=== PATIENT | male | born 1985 | race Caucasian/White ===

== ENCOUNTER 2022-11-19 23:11 | Emergency (ER) | payer OTHER, SELFPAY ==
--- NOTE | ~2022-11-19 | US_ITS ---
US scrotum doppler DATE: 11/20/2022 00:21 INDICATION: Left scrotal pain TECHNIQUE: Real-time and color flow imaging and Doppler analysis of the scrotal contents COMPARISON: None FINDINGS: There is normal symmetric echotexture of the testicles, without evidence of testicular mass lesion. There is normal vascular flow to the testicles, without evidence of torsion. Left and right epididymis appear normal. Left varicocele. Left varix diameter measures up to 3.5 mm. IMPRESSION: Left varicocele Reviewed, dictated and finalized at [facility] Reviewed, dictated and finalized at [facility]. [employer] IMPRESSION: Left varicocele
[2022-11-19 23:14] VITALS: BP 147/85; PULSE 83; RESP 14; TEMP 36.2; O2SAT 97
--- NOTE | 2022-11-19 23:29 | ED.MALEGU ---
HPI - Male Genitourinary General Chief complaint: Urogenital-Male Stated complaint: left testicle pain Time Seen by Provider: 11/19/22 23:22 History of Present Illness HPI Narrative: Patient is a 37-year-old male here for evaluation of left testicular pain for the past day. Patient states the pain is crampy and severe in nature located around his left testicle and also in his left groin. Reports nausea but no vomiting associated with this. Patient has history of varicocele, epididymitis and hydrocele but states that pain today feels different. No penile drainage, dysuria, urgency or frequency. Related Data Home Medications Medication Instructions Recorded Confirmed No Home Medications 11/19/22 11/19/22 Allergies Allergy/AdvReac Type Severity Reaction Status Date / Time No Known Allergies Allergy Verified 11/19/22 23:11 Review of Systems Review of Systems: Gen.: Denies fevers or chills Eyes: Denies eye pain or visual change ENT: Denies congestion Respiratory: Denies shortness of breath or cough CV: Denies chest pain or palpitations GI: Reports nausea denies abdominal pain, emesis or diarrhea reports left testicular pain denies burning, urgency, frequency or hematuria Musculoskeletal: Denies back pain or muscle pain Neuro: Denies numbness, tingling, weakness or focal weakness Skin: Denies rash Except as documented, all other systems reviewed and negative Exam Narrative: APPEARANCE: Well appearing, no pain in distress, well-nourished. Head: Normocephalic and atraumatic. EYES: PERRLA/EOMI, conjunctivae clear NOSE: No nasal drainage EARS: External ear normal in appearance THROAT: Oropharynx is clear. Mucous membranes are moist. NECK: Supple. No adenopathy, no masses. RESPIRATORY: Airway patent, respirations nonlabored. Clear to auscultation bilaterally, no rales, rhonchi, wheezing. CARDIOVASCULAR: Regular rate and rhythm without murmurs, rubs, or gallops. ABDOMINAL: Normoactive bowel sounds. Soft, nontender, nondistended. No rebound tenderness or guarding. : bag of worms palpated in left testicle. No tenderness to palpation of either testicle. No penile lesions or rashes. No penile discharge MUSCULOSKELETAL: Extremities are warm and well-perfused. Moves all extremities well. No edema. NEURO: Normal speech. No focal neurologic deficits. SKIN: Skin is warm and dry. No rashes. PSYCHIATRIC: Normal affect/mood.. Course Vital Signs Vital signs: Vital Signs Temperature 97.2 F L 11/19/22 23:14 Pulse Rate 83 11/19/22 23:14 Respiratory Rate 14 11/19/22 23:14 Blood Pressure 147/85 H 11/19/22 23:14 Pulse Oximetry 97 11/19/22 23:14 Oxygen Delivery Room Air 11/19/22 23:14 Temperature 97.2 F L 11/19/22 23:14 Pulse Rate 67 11/20/22 00:57 Respiratory Rate 17 11/20/22 00:57 Blood Pressure 107/55 L 11/20/22 00:57 Pulse Oximetry 97 11/20/22 00:57 Oxygen Delivery Room Air 11/19/22 23:14 MDM - Male Genitourinary MDM Narrative Medical decision making narrative: 37-year-old male here for evaluation of left-sided testicular pain over the past day. He has a bag of worms sensation palpated in his left testicle. He does have a history of varicocele. Ultrasound confirms these findings and has no evidence of torsion. Radiologist commented that color Doppler was not applied to this area and therefore thrombosis cannot be excluded, but it is an uncommon process. Did discuss with the radiologist about this finding who stated that he likely would have some other inflammatory changes and findings on the ultrasound if thrombosis was present. This is even less likely because patient pain improved with IV Tylenol. Will discharge home with urology follow-up, advised supportive underwear and analgesics as needed. Return precautions were discussed and he voiced understanding. Lab Data Labs: Lab Results 11/19/22 Range/Units 23:34 Urine Color Yellow (Yellow) Urine Appearance Cl
[2022-11-19] MEDS: SODIUM CHLORIDE 0.9% IV 1,000 ML 999 ML IV CONT (23:37)
[2022-11-19] MEDS: ONDANSETRON INJ 4 MG/2 ML VIAL IV PUSH (23:38)
--- NOTE | 2022-11-19 23:57 | PC.NURSE ---
US arrives to room.
[2022-11-20 00:12] LABS: Appearance Urine Clear (Clear); Bilirubin Urine Negative (Negative); Blood Urine Negative (Negative); Color Urine Yellow (Yellow); Glucose Urine UA Negative (Negative); Ketones Urine Negative (Negative); Leukocyte Esterase Ur Negative LEU/UL (Negative); Nitrate Urine Negative (Negative); Protein Urine Negative (Negative); pH Urine 6.5 (5.0-9.0)
[2022-11-20 00:52] LABS: Add Urine Microscopic? NO
[2022-11-20 00:57] VITALS: BP 107/55; PULSE 67; RESP 17; O2SAT 97
[2022-11-20] MEDS: HYDROcodone/acetaminophen (*CRX) 5-325 MG TABLET 1 TAB PO (01:52)
== END 2022-11-20 02:01 | disposition home or self-care (01) ==
PROVIDERS: Emergency Provider Physician Assistant
DX: I86.1 Scrotal varices (principal)
CPT/HCPCS: 76870; 81003; 93976; 96361; 96365; 96375; 99284; A9270; J0131; J2405; J7030